=== PATIENT | male | born 1945 | race Caucasian/White ===

== ENCOUNTER 2020-02-29 08:56 | Emergency (ER) | payer MEDICARE, OTHER ==
--- NOTE | 2020-02-29 09:09 | ED Physician Documentation ---
PD HPI NVD - Stated complaint Stated Complaint: DIARRHEA/DIZZY - Chief complaint Chief Complaint: Abd Pain - History obtained from History obtained from: Patient - History of Present Illness Timing - onset: How many days ago (4) Timing - duration: Days (4) Timing - details: Abrupt onset, Still present Associated symptoms: Loss of appetite, Other (nausea, some vomiting, frequent watery stools.). No: Fever, Abdominal pain, Near syncope / syncope Contributing factors: Bad food (he had some leftover smoked salmon that his did not eat. Symptoms onset next day.). No: Sick contact ( feels well), Travel, Recent antibiotics Improved by: No: Vomiting Worsened by: Eating Similar symptoms before: Has not had sx before Recently seen: Not recently seen Review of Systems Constitutional: reports: Fatigue. denies: Fever, Chills Nose: denies: Rhinorrhea / runny nose, Congestion Throat: denies: Sore throat Respiratory: denies: Cough GI: reports: Abdominal Pain (cramping intermittent), Nausea, Vomiting, Diarrhea. denies: Hematemesis, Bloody / black stool : denies: Dysuria Neurologic: reports: Generalized weakness. denies: Focal weakness, Numbness, Near syncope, Confused, Altered mental status, Headache Psychiatric: denies: Anxiety PD PAST MEDICAL HISTORY - Past Medical History Cardiovascular: Hypertension Respiratory: None Endocrine/Autoimmune: None GI: GERD : None HEENT: None Psych: None Musculoskeletal: None Derm: None - Present Medications Home Medications: Ambulatory Orders Medication Instructions Recorded Confirmed Atorvastatin [Lipitor] 20 mg PO DAILY 08/10/16 08/10/16 Omeprazole 20 mg PO DAILY 08/10/16 08/10/16 Diphenoxylate/Atropine [Lomotil] 1 each PO QID PRN #14 tablet 08/11/16 Ondansetron HCl [Zofran] 4 mg PO Q6HR PRN #14 tablet 08/11/16 Diphenoxylate/Atropine [Lomotil] 1 each PO QID PRN #12 tablet 02/29/20 Ondansetron Odt [Zofran] 4 mg TL Q6H PRN #10 tablet 02/29/20 Saccharomyces Boulardii [Florastor] 250 mg PO BID #14 capsule 02/29/20 - Allergies Allergies/Adverse Reactions: Allergies Allergy/AdvReac Type Severity Reaction Status Date / Time levofloxacin [From Levaquin] AdvReac back pain Verified 08/10/16 23:01 - Social History Does the pt smoke?: No Smoking Status: Never smoker Does the pt drink ETOH?: No Does the pt have substance abuse?: No - Immunizations Immunizations are current?: Yes - POLST Patient has POLST: No PD ED PE NORMAL - Vitals Vital signs reviewed: Yes - General General: Alert and oriented X 3, No acute distress, Well developed/nourished - HEENT HEENT: Pharynx benign - Neck Neck: Supple, no meningeal sign, No adenopathy - Cardiac Cardiac: RRR, No murmur - Respiratory Respiratory: Clear bilaterally - Abdomen Abdomen: Soft, Non tender, Non distended, No organomegaly. No: Normal bowel sounds (hyperactive) - Back Back: No CVA TTP - Derm Derm: Normal color, Warm and dry - Extremities Extremities: No tenderness to palpate, Normal ROM s pain, No edema, No calf tenderness / cord - Neuro Neuro: Alert and oriented X 3, No motor deficit, Normal speech Results - Vitals Vitals: Vital Signs - 24 hr 02/29/20 02/29/20 02/29/20 11:06 13:00 13:19 Heart Rate 52 L 58 L Heart Rate [ 72 Sitting] Heart Rate [ 71 Standing] Heart Rate [ 64 Supine] Respiratory 16 14 Rate Blood Pressure 125/75 125/75 Blood Pressure 112/50 L [Sitting] Blood Pressure 120/60 [Standing] Blood Pressure 132/74 H [Supine] O2 Saturation 100 100 02/29/20 13:26 Heart Rate Heart Rate [ Sitting] Heart Rate [ Standing] Heart Rate [ Supine] Respiratory 18 Rate Blood Pressure Blood Pressure [Sitting] Blood Pressure [Standing] Blood Pressure [Supine] O2 Saturation 100 Oxygen O2 Source Room air - Labs Labs: Laboratory Tests 02/29/20 02/29/20 02/29/20 09:18 10:07 10:07 WBC 7.1 RBC 5.00 Hgb 15.8 Hct 46.5 MCV 93.0 MCH 31.6 H MCHC 34.0 RDW 12.9 Plt Count 167 MPV 9.7 Neut # (Auto) 5.6 Lymph # (Auto) 0.9 L Finney # (Auto) 0.4 Eos # (Auto) 0.1 Baso # (Auto) 0.0 Absolute Nucleated RBC 0.00 Nucleated RBC % 0.0 Sodium 132 L Potassium 3.8 Chloride 103 Carbon Dioxide 19 L Anion Gap 10.0 BUN 18 Creatinine 1.3 H Estimated GFR (MDRD) 54 L Glucose 176 H Calcium 9.1 Magnesium 2.0 Total Bilirubin 2.6 H AST 19 ALT 25 Alkaline Phosphatase 60 Total Protein 8.1 Albumin 4.9 Globulin 3.2 Albumin/Globulin Ratio 1.5 Lipase 25 Stl C. diff Tox B Gene NEGATIVE Coronavirus (PCR) 02/29/20 13:24 WBC RBC Hgb Hct MCV MCH MCHC RDW Plt Count MPV Neut # (Auto) Lymph # (Auto) Finney # (Auto) Eos # (Auto) Baso # (Auto) Absolute Nucleated RBC Nucleated RBC % Sodium Potassium Chloride Carbon Dioxide Anion Gap BUN Creatinine Estimated GFR (MDRD) Glucose Calcium Magnesium Total Bilirubin AST ALT Alkaline Phosphatase Total Protein Albumin Globulin Albumin/Globulin Ratio Lipase Stl C. diff Tox B Gene Coronavirus (PCR) NEGATIVE PD MEDICAL DECISION MAKING - ED course Complexity details: re-evaluated patient (improved with fluids and meds. ), considered differential, d/w patient, d/w family () Departure - Departure Disposition: 01 Home, Self Care Clinical Impression: Nausea vomiting and diarrhea Condition: Stable Record reviewed to determine appropriate education?: Yes Instructions: ED Diet Vomiting Diarrhea Follow-Up: Rik Bhatti MD [Primary Care Provider] - Prescriptions: Saccharomyces Boulardii [Florastor] 250 mg PO BID #14 capsule Diphenoxylate/Atropine [Lomotil] 1 each PO QID PRN #12 tablet PRN Reason: Diarrhea Ondansetron Odt [Zofran] 4 mg TL Q6H PRN #10 tablet PRN Reason: Nausea / Vomiting Comments: Your stool culture should result later or tomorrow. We will call if there is a specific antibiotic indicated. Meanwhile use ondansetron for nausea and Lomotil for diarrhea and add some probiotics. I would anticipate improvement over the next couple of days. Is frequent fluids and bland food initially. Discharge Date/Time: 02/29/20 13:34
[2020-02-29] MEDS ORDERED: DIPHENOX/ATROPINE 2.5/0.025 MG TABLET PO STA (09:47)
[2020-02-29] MEDS ORDERED: MORPHINE 2 MG/ML CARPUJECT IVP STA (09:47)
[2020-02-29] MEDS ORDERED: ONDANSETRON 4 MG/2 ML VIAL IVP STA (09:47)
[2020-02-29] MEDS ORDERED: SODIUM CHLORIDE 0.9% 1,000 ML IV STA ×2 (09:47→12:56)
[2020-02-29] MEDS ORDERED: LACTATED RINGERS 1,000 ML IV STA (09:48)
[2020-02-29 10:17] LABS: BASOPHILS % (AUTO) 0.1 %; EOSINOPHILS # (AUTO) 0.1 10^3/uL (0.0-0.7); EOSINOPHILS % (AUTO) 1.5 %; HGB - HEMOGLOBIN 15.8 g/dL (14.0-18.0); LYMPHOCYTES # (AUTO) 0.9 10^3/uL (1.5-3.5); MEAN CORPUSCULAR HEMOGLOBIN 31.6 pg (27.0-31.0); MEAN PLATELET VOLUME 9.7 fL (7.4-11.4); MONOCYTES # (AUTO) 0.4 10^3/uL (0.0-1.0); MONOCYTES % (AUTO) 6.2 %; NEUTROPHILS # (AUTO) 5.6 10^3/uL (1.5-6.6); NEUTROPHILS % (AUTO) 79.1 %; PLT - PLATELET COUNT 167 10^3/uL (130-450); RED CELL DISTRIBUTION WIDTH 12.9 % (12.0-15.0); WHITE BLOOD COUNT 7.1 x10^3/uL (4.8-10.8)
[2020-02-29 10:33] LABS: ALBUMIN 4.9 g/dL (3.2-5.5); ALBUMIN/GLOBULIN RATIO 1.5 (1.0-2.2); BILIRUBIN,TOTAL 2.6 mg/dL (0.2-1.0); CALCIUM 9.1 mg/dL (8.5-10.3); CREATININE 1.3 mg/dL (0.6-1.2); TOTAL PROTEIN 8.1 g/dL (6.7-8.2)
[2020-02-29 13:20] VITALS: BP 132/74
== END 2020-02-29 13:34 | disposition home or self-care (01) ==
LOC: ED 08:56
DX: R19.7 Diarrhea, unspecified (principal); R11.2 Nausea with vomiting, unspecified; Z11.59 Encounter for screening for other viral diseases; I10 Essential (primary) hypertension
CPT/HCPCS: 36415; 80053; 81599; 83690; 83735; 85025; 87493; 96361; 96374; 99283; 99284; A9270; J7120; U0004; 87045; 87046

== ENCOUNTER 2020-05-16 13:45 | Outpatient (CLI) | payer MEDICARE, OTHER | END 2020-05-16 13:46 | disposition short-term general hospital (02) | LOC: EMS 13:45 | PROVIDERS: ATTEND Surgery | DX: R00.1 Bradycardia, unspecified (principal); R55 Syncope and collapse | CPT/HCPCS: A0425; A0427 ==